=== PATIENT | female | born 1990 | race African-American/Black ===

== ENCOUNTER 2019-08-03 19:10 | Emergency (ER) | payer MEDICAID, OTHER ==
[~2019-08-03] VITALS: Ht 157.5 cm; Wt 90.0 kg
[~2019-08-03 19:10] MED LIST: ALBUTEROL; ANXIETY MEDS; IBUP-2028 PO
[2019-08-03 22:00] VITALS: BP 116/73
== END 2019-08-04 00:13 | disposition home or self-care (01) ==
LOC: ER 19:10
DX: O99.512 Diseases of the respiratory system complicating pregnancy, second trimester (principal); O99.334 Smoking (tobacco) complicating childbirth; F17.290 Nicotine dependence, other tobacco product, uncomplicated; Z3A.18 18 weeks gestation of pregnancy; Z98.890 Other specified postprocedural states
CPT/HCPCS: 71045; 99283; 99406

== ENCOUNTER 2019-11-16 11:38 | Observation (INO) | payer MEDICAID ==
[~2019-11-16] VITALS: Ht 157.5 cm; Wt 95.3 kg
[2019-11-16 12:54] LABS: CLARITY URINE CLEAR (CLEAR); COLOR URINE YELLOW (YELLOW); KETONES URINE NEGATIVE (NEGATIVE); LEUKOCYTE ESTERASE URINE 1+ (NEGATIVE); NITRITE URINE NEGATIVE (NEGATIVE); OCCULT BLOOD URINE NEGATIVE (NEGATIVE); PROTEIN URINE NEGATIVE (NEGATIVE); SPECIFIC GRAVITY URINE 1.022 (1.005-1.030); UROBILINOGEN URINE 0.2 E.U./dL (0.2-1.0)
[2019-11-16] MEDS ORDERED: PNV1TABL50 MT (14:47)
== END 2019-11-16 14:45 | disposition home or self-care (01) ==
LOC: 8 EST LDRP 11:38
PROVIDERS: ADMIT Obstetrics & Gynecology; ATTEND Obstetrics & Gynecology
DX: O26.893 Other specified pregnancy related conditions, third trimester (principal); R10.10 Upper abdominal pain, unspecified; Z3A.33 33 weeks gestation of pregnancy
CPT/HCPCS: 81003; 99281; G0378

== ENCOUNTER → 2019-12-23 | Outpatient (CLI) | payer MEDICAID ==
[~2019-12-23] MED LIST changes: -ALBUTEROL; -ANXIETY MEDS; -IBUP-2028 PO; +PNV1TABL50 MT
== END | disposition home or self-care (01) ==
LOC: LAB 16:41
PROVIDERS: ATTEND Obstetrics & Gynecology
DX: Z01.818 Encounter for other preprocedural examination (principal); Z11.59 Encounter for screening for other viral diseases
CPT/HCPCS: C9803; U0003

== ENCOUNTER 2019-12-25 06:18 | Inpatient (IN) | payer MEDICAID ==
[~2019-12-25] VITALS: Ht 157.5 cm; Wt 94.3 kg
[2019-12-25] MEDS ORDERED: DIPHENHYDRAMINE 50MG/ML VIAL IV PRN (07:45)
[2019-12-25] MEDS ORDERED: OXYTOCIN 10 UNITS/ML 1ML ONE ×2 (07:55→11:43)
[2019-12-25] MEDS ORDERED: SODIUM CHLORIDE 0.9% 10ML VIAL ONE (07:57)
[2019-12-25] MEDS ORDERED: EPHEDRINE SULFATE 50MG/ML VIAL ONE (07:57)
[2019-12-25] MEDS ORDERED: PHENYLEPHRINE HCL 10 MG/ML 1ML (IV VIAL) IV ONE (07:57)
[2019-12-25] MEDS ORDERED: CARBOPROST TROMETHAMINE 250 MCG/ML AMPUL IM PRN (08:00)
[2019-12-25] MEDS ORDERED: LACTATED RINGERS 1,000 ML IV SCH (08:00)
[2019-12-25] MEDS ORDERED: MISOPROSTOL 100MCG TABLET PO PRN (08:00)
[2019-12-25] MEDS ORDERED: DEXT 5%/LR + PITOCIN 20UNITS/L 1,000 ML IV PRN (08:00)
[2019-12-25] MEDS ORDERED: METHYLERGONOVINE MALEATE 0.2 MG/ML IM PRN (08:00)
[2019-12-25] MEDS ORDERED: MORPHINE SULFATE/PF 1MG/ML 10ML AMP ONE (08:01)
[2019-12-25] MEDS ORDERED: GLYCOPYRROLATE 0.2 MG/ML 2ML VIAL ONE (08:05)
[2019-12-25 08:06] LABS: BASOPHILS % 0.5 % (0.0-2.0); EOSINOPHILS % 0.6 % (0.0-5.0); HEMATOCRIT. 34.4 % (36.0-48.0); HEMOGLOBIN. 11.5 g/dL (12.0-16.0); LYMPHOCYTES % 18.3 % (20.0-50.0); MEAN CORPUSCULAR HEMOGLOBIN 28.4 pg (28.0-32.0); MEAN CORPUSCULAR VOLUME 85.4 fL (81.0-99.0); MEAN PLATELET VOLUME 8.3 fl (7.4-10.4); MONOCYTES % 8.9 % (2.0-8.0); NEUTROPHILS % 71.7 % (40.0-76.0); PLATELET 258 x1000/uL (130-400); RED BLOOD CELL COUNT 4.03 mill/uL (4.2-5.4); RED CELL DISTRIBUTION WIDTH 15.3 % (11.6-14.6)
[2019-12-25 08:14] LABS: CLARITY URINE CLEAR (CLEAR); COLOR URINE YELLOW (YELLOW); KETONES URINE TRACE (NEGATIVE); LEUKOCYTE ESTERASE URINE TRACE (NEGATIVE); NITRITE URINE NEGATIVE (NEGATIVE); OCCULT BLOOD URINE NEGATIVE (NEGATIVE); PH URINE 5.5 (4.5-8.0); PROTEIN URINE NEGATIVE (NEGATIVE); SPECIFIC GRAVITY URINE 1.024 (1.005-1.030)
[2019-12-25 08:14] LABS: INR 0.9; PARTIAL THROMBOPLASTIN TIME 25.6 sec (23.4-31.0); PROTHROMBIN TIME 9.8 sec (9.6-11.0)
[2019-12-25] MEDS ORDERED: CITRIC ACID/SODIUM CITRATE SOLN 30ML UDC PO NR (08:15)
[2019-12-25 08:35] LABS: *AMPHETAMINES SCREEN URINE NEGATIVE (NEGATIVE); *BARBITURATES SCREEN URINE NEGATIVE (NEGATIVE); *BENZODIAZEPINES SCREEN URINE NEGATIVE (NEGATIVE); *COCAINE SCREEN URINE NEGATIVE (NEGATIVE); METHADONE URINE SCREEN NEGATIVE (NEGATIVE); OPIATES URINE SCREEN NEGATIVE (NEGATIVE)
[2019-12-25 08:35] LABS: HEPATITIS B SURFACE ANTIGEN NEGATIVE
[2019-12-25 08:36] LABS: PHENCYCLIDINE URINE SCREEN NEGATIVE (NEGATIVE)
[2019-12-25 08:42] LABS: CANNABINOID URINE SCREEN PRESUMTIVE POSITIVE (NEGATIVE)
[2019-12-25] MEDS ORDERED: CEFAZOLIN SODIUM 1000MG/VIAL ONE (11:12)
[2019-12-25] MEDS ORDERED: PROPOFOL 200MG/20ML VIAL IV ONE (11:15)
[2019-12-25] MEDS ORDERED: LIDOCAINE HCL/PF 1% 10 MG/ML 5ML VIAL ONE (11:16)
[2019-12-25] MEDS ORDERED: MIDAZOLAM HCL 2 MG/2 ML VIAL ONE (11:18)
[2019-12-25] MEDS ORDERED: METOCLOPRAMIDE HCL 10MG/2ML VIAL ONE (11:33)
[2019-12-25] MEDS ORDERED: KETOROLAC 60MG/2ML VIAL IM ONE (11:52)
[2019-12-25 14:45] VITALS: BP 108/63
[2019-12-25 15:15] VITALS: BP 100/64
[2019-12-25 20:00] VITALS: BP 104/78
[2019-12-25] MEDS: KETOROLAC 30MG/ML VIAL IV PRN (23:06)
[2019-12-25 23:56] VITALS: BP 104/64
[2019-12-26 03:40] VITALS: BP 98/52
[2019-12-26 08:00] VITALS: BP 105/68
[2019-12-26] MEDS: KETOROLAC 30MG/ML VIAL IV PRN (09:20)
[2019-12-26 13:33] VITALS: BP 113/74
[2019-12-26] MEDS: IBUPROFEN 800MG TABLET PO PRN ×2 (15:49→22:06)
[2019-12-26 16:31] VITALS: BP 109/69
[2019-12-26 18:26] LABS: BASOPHILS % 0.3 % (0.0-2.0); EOSINOPHILS % 0.4 % (0.0-5.0); HEMATOCRIT. 28.5 % (36.0-48.0); HEMOGLOBIN. 9.3 g/dL (12.0-16.0); LYMPHOCYTES % 13.2 % (20.0-50.0); MEAN CORPUSCULAR VOLUME 85.4 fL (81.0-99.0); MEAN PLATELET VOLUME 7.8 fl (7.4-10.4); MONOCYTES % 9.5 % (2.0-8.0); NEUTROPHILS % 76.6 % (40.0-76.0); PLATELET 238 x1000/uL (130-400); RED BLOOD CELL COUNT 3.34 mill/uL (4.2-5.4); RED CELL DISTRIBUTION WIDTH 14.9 % (11.6-14.6)
[2019-12-26 22:00] VITALS: BP 112/65
[2019-12-27] MEDS: IBUPROFEN 800MG TABLET PO PRN ×2 (03:55→08:55)
[2019-12-27 08:00] VITALS: BP 116/71
[2019-12-30 05:10] LABS: CANNABINOID CONFIRMATION URINE Positive (.)
== END 2019-12-27 10:30 | disposition home or self-care (01) | DRG 540 ==
LOC: 8 EST LDRP 06:18 → 8EST 14:36
PROVIDERS: ADMIT Obstetrics & Gynecology; ATTEND Obstetrics & Gynecology
PROC: 10D00Z1 Extraction of Products of Conception, Low, Open Approach (ICD-10-PCS; principal; 2019-12-25)
DX: O34.219 Maternal care for unspecified type scar from previous cesarean delivery (principal); D64.9 Anemia, unspecified; O99.02 Anemia complicating childbirth; F12.10 Cannabis abuse, uncomplicated; O99.324 Drug use complicating childbirth; Z37.0 Single live birth; Z3A.39 39 weeks gestation of pregnancy; Z79.899 Other long term (current) drug therapy
CPT/HCPCS: 36415; 80305; 80349; 81003; 85025; 86592; 86703; 86762; 86850; 86900; 87340; 88307; J0690; J1885; J2250; J2274; J2370; J2590; J2704; J2765; J3490

== ENCOUNTER 2020-02-27 22:23 | Emergency (ER) | payer MEDICAID, OTHER ==
[~2020-02-27] VITALS: Ht 157.5 cm; Wt 91.0 kg
[2020-02-27] MEDS ORDERED: AMOXICILLIN/POTASSIUM CLAVULANATE 875/125MG TAB PO ONE (23:45)
[2020-02-27] MEDS ORDERED: IBUPROFEN 600MG TABLET PO ONE (23:45)
[2020-02-28 00:44] VITALS: BP 118/77
== END 2020-02-28 02:05 | disposition home or self-care (01) ==
LOC: ER 22:23
DX: K02.9 Dental caries, unspecified (principal); Z98.890 Other specified postprocedural states
CPT/HCPCS: 99283